=== PATIENT | female | born 1955 | race Caucasian/White ===

== ENCOUNTER → 2018-09-28 | Outpatient (CLI) | payer BC ==
[2018-09-28 17:26] LABS: ALBUMIN 4.1 GM/DL (3.2-4.5); BILIRUBIN,TOTAL 0.3 MG/DL (0.1-1.0); CALCIUM 9.7 MG/DL (8.5-10.1); CREATININE SERUM 1.09 MG/DL (0.60-1.30); POTASSIUM 4.1 MMOL/L (3.6-5.0); TOTAL PROTEIN 7.8 GM/DL (6.4-8.2)
== END ==
LOC: LAB FS 16:32
PROVIDERS: ATTEND Pediatrics
DX: I10 Essential (primary) hypertension (principal)
CPT/HCPCS: 36415; 80053; 80061